=== PATIENT | female | born 1980 | race African-American/Black ===

== ENCOUNTER 2018-07-09 18:06 | Emergency (ER) | payer OTHER ==
[~2018-07-09] VITALS: Ht 165.1 cm; Wt 79.4 kg
[2018-07-09 18:22] VITALS: Ht 165.1 cm; Wt 79.4 kg
[2018-07-09 19:34] LABS: microscopic required? NO
[2018-07-09 19:45] LABS: UA SPECIFIC GRAVITY >=1.030 (1.005-1.035); urine erythrocyte NEGATIVE (NEGATIVE)
[2018-07-09 19:46] LABS: BASOPHIL % 0.6 % (0-2); PLATELET COUNT 381 x10^3mcL (130-400)
[2018-07-09 19:54] LABS: AMPHETAMINE QUAL UR NONE DETECTED (See below)
[2018-07-09 20:04] LABS: ALKALINE PHOSPHATASE 76 U/L (46-116); ALT/SGPT 17 U/L (14-59); AST/SGOT 26 U/L (15-37); BILIRUBIN TOTAL 0.4 mg/dL (0.20-1.00); CALCIUM 8.6 mg/dL (8.5-10.1); CARBON DIOXIDE 27.1 mmol/L (21-32); CHLORIDE SERUM 102 mmol/L (98-107); CREATININE SERUM 0.7 mg/dL (0.6-1.0); GFR1 > 60 mL/min; GLUCOSE SERUM 80 mg/dL (74-106); POTASSIUM SERUM 3.7 mmol/L (3.5-5.1); SODIUM SERUM 137 mmol/L (136-145); TOTAL PROTEIN, SERUM 6.7 g/dL (6.4-8.2)
[2018-07-09 20:05] LABS: ALBUMIN 2.9 g/dL (3.4-5.0)
[2018-07-09 20:12] LABS: RED CELL DISTRIBUTION WIDTH 18.7 % (11.5-14.5)
[2018-07-09 21:51] VITALS: BP 109/72
== END 2018-07-09 21:52 | disposition home or self-care (01) ==
LOC: ED 18:06
PROVIDERS: Emergency Medicine
DX: Z04.6 Encounter for general psychiatric examination, requested by authority (principal); F31.9 Bipolar disorder, unspecified; D64.9 Anemia, unspecified; E86.0 Dehydration; L81.9 Disorder of pigmentation, unspecified; Z59.0 Homelessness
CPT/HCPCS: 36415; G0480